=== PATIENT | male | born 1960 | race Caucasian/White ===

== ENCOUNTER 2021-01-13 15:27 | Inpatient (IN) | payer OTHER ==
[~2021-01-13] VITALS: Ht 172.7 cm; Wt 72.7 kg
[2021-01-13] VITALS (9 sets, daily range): BP systolic 97–110; BP diastolic 57–81
[~2021-01-13 15:27] MED LIST: ASPI81TA64 PO; ATOR40TA PO; CARV3.12 PO; CLOP75TA28 PO; ENLP2.5T PO; FURO20TA4 PO; SPIR25TA5 PO
[2021-01-13] MEDS ORDERED: LIDOCAINE 1% INJ 20 ML 20 ML VIAL ONE (15:38)
--- NOTE | 2021-01-13 15:50 | ED Upper Extremity ---
General Chief Complaint: Laceration Stated Complaint: LACERATION ON LEFT HAND Nursing Triage Note: Patient reports he was taking care of his horse, states the horse moved and he reached out to steady himself on a wooden border of a raised garden. States his hand slid across the wood and a sharp piece of wood cut the palm of his left hand. He reports his tetanus shot is up to date (last August). Nursing Sepsis Screen: No Definite Risk Source: patient Exam Limitations: no limitations History of Present Illness Date Seen by Provider: Jan 13, 2021 Time Seen by Provider: 15:49 Initial Comments 60-year-old man presents with a laceration to his left palm. See nurse's note above. Incidentally noted while taking vitals to have a rapid heart rate, patient asymptomatic. Denies chest pain or shortness of air. Denies palpitations or syncope. States he was seen last week and had a heart catheterization and a stent placed [facility] by Dr. Mena. Since then he has been doing fine his only medications being aspirin and Lipitor, but he is not sure of any others. Allergies and Home Medications Allergies Coded Allergies: No Known Drug Allergies (Unverified , 01/03/21) Home Medications Aspirin 81 Mg Tab.chew, 81 MG PO DAILY Prescribed by: SEAN JIMÉNEZ on 01/05/21917 Atorvastatin Calcium 40 Mg Tablet, 40 MG PO HS Prescribed by: SEAN JIMÉNEZ on 01/05/21917 Carvedilol 3.125 Mg Tablet, 3.125 MG PO BID Prescribed by: SEAN JIMÉNEZ on 01/05/21917 Clopidogrel Bisulfate 75 Mg Tablet, 75 MG PO DAILY Prescribed by: SEAN JIMÉNEZ on 01/05/21917 Enalapril Maleate 2.5 Mg Tablet, 2.5 MG PO BID Prescribed by: SEAN JIMÉNEZ on 01/05/21917 Furosemide 20 Mg Tablet, 20 MG PO DAILY Prescribed by: SEAN JIMÉNEZ on 01/05/21917 Spironolactone 25 Mg Tablet, 25 MG PO DAILY Prescribed by: SEAN JIMÉNEZ on 01/05/21917 Patient Home Medication List Home Medication List Reviewed: Yes Review of Systems Constitutional: No fever, No malaise, No weakness EENTM: no symptoms reported Respiratory: no symptoms reported; No cough, No short of breath Cardiovascular: No chest pain, No edema; Hx of Intervention; No palpitations, No syncope, No vascular heart diseas Gastrointestinal: No abdominal pain, No nausea, No vomiting Musculoskeletal: No back pain, No joint pain; other (cut to left hand/ palm, no signif pain) Skin: No change in color, No lesions, No lumps Psychiatric/Neurological: Denies Numbness, Denies Paresthesia, Denies Seizure, Denies Tingling, Denies Tremors, Denies Weakness Past Zulbplu-Enkrfy-Ctcxru Hx Past Med/Social Hx: Reviewed Nursing Past Med/Soc Hx Patient Social History Alcohol Use: Denies Use Smoking Status: Never a Smoker 2nd Hand Smoke Exposure: No Recent Infectious Disease Expo: No Recent Hopitalizations: No Immunizations Up To Date Tetanus Booster (TDap): Unknown Date of Influenza Vaccine: Aug 14, 2020 Seasonal Allergies Seasonal Allergies: No Past Medical History Surgeries: Yes Orthopedic Respiratory: No Cardiac: No Neurological: No Genitourinary: No Gastrointestinal: No Musculoskeletal: No Endocrine: No HEENT: No Cancer: No Psychosocial: No Integumentary: No Blood Disorders: No Family Medical History Heart Disease, Diabetes Physical Exam Vital Signs Vital Signs - First Documented 01/13/21 15:28 Temp 37.5 Pulse 121 Resp 16 B/P (MAP) 128/79 (95) Pulse Ox 97 O2 Delivery Room Air Capillary Refill : Less Than 3 Seconds Height, Weight, BMI Height: '" Weight: lbs. oz. kg; 24.00 BMI Method: General Appearance: WD/WN, no apparent distress Neck: non-tender, supple Cardiovascular: no edema, no JVD, tachycardia Respiratory: chest non-tender, lungs clear, normal breath sounds, no respiratory distress, no accessory muscle use Gastrointestinal: normal bowel sounds, non tender, soft Back: normal inspection, no CVA tenderness Hand: normal ROM, Left, soft tissue tenderness (2cm flap laceration palm of left hand) Neurologic/Tendon: normal sensation, normal motor functions, normal tendon functions Neurologic/Psychiatric: no motor/sensory deficits, alert, normal mood/affect, oriented x 3 Skin: normal color, warm/dry Procedures/Interventions Wound Location: Upper Extremities Wound Length (cm): 2.0 Wound's Depth, Shape: flap Wound Explored: clean Betadine Prep?: No (sure cleans) Volume Anesthetic (ccs): 2 Suture: Ethlion Suture Size: 4-0 Number of Sutures: 2 Sterile Dressing Applied?: Yes Progress/Results/Core Measures Results/Orders Lab Results Laboratory Tests Test 01/13/21 15:52 Range/Units White Blood Count 12.7 H 4.3-11.0 10^3/uL Red Blood Count 4.56 4.35-5.85 10^6/uL Hemoglobin 13.4 13.3-17.7 G/DL Hematocrit 41 40-54 % Mean Corpuscular Volume 89 80-99 FL Mean Corpuscular Hemoglobin 29 25-34 PG Mean Corpuscular Hemoglobin Concent 33 32-36 G/DL Red Cell Distribution Width 13.1 10.0-14.5 % Platelet Count 391 130-400 10^3/uL Mean Platelet Volume 9.8 7.4-10.4 FL Immature Granulocyte % (Auto) 1 % Neutrophils (%) (Auto) 77 H 42-75 % Lymphocytes (%) (Auto) 14 12-44 % Monocytes (%) (Auto) 7 0-12 % Eosinophils (%) (Auto) 1 0-10 % Basophils (%) (Auto) 0 0-10 % Neutrophils # (Auto) 9.7 H 1.8-7.8 X 10^3 Lymphocytes # (Auto) 1.8 1.0-4.0 X 10^3 Monocytes # (Auto) 0.8 0.0-1.0 X 10^3 Eosinophils # (Auto) 0.2 0.0-0.3 10^3/uL Basophils # (Auto) 0.1 0.0-0.1 10^3/uL Immature Granulocyte # (Auto) 0.1 0.0-0.1 10^3/uL Sodium Level 133 L 135-145 MMOL/L Potassium Level 4.5 3.6-5.0 MMOL/L Chloride Level 97 L 98-107 MMOL/L Carbon Dioxide Level 24 21-32 MMOL/L Anion Gap 12 5-14 MMOL/L Blood Urea Nitrogen 16 7-18 MG/DL Creatinine 0.76 0.60-1.30 MG/DL Estimat Glomerular Filtration Rate > 60 BUN/Creatinine Ratio 21 Glucose Level 168 H 70-105 MG/DL Calcium Level 9.3 8.5-10.1 MG/DL Corrected Calcium 9.5 8.5-10.1 MG/DL Magnesium Level 1.9 1.6-2.4 MG/DL Total Bilirubin 0.4 0.1-1.0 MG/DL Aspartate Amino Transf (AST/SGOT) 20 5-34 U/L Alanine Aminotransferase (ALT/SGPT) 20 0-55 U/L Alkaline Phosphatase 99 40-136 U/L Troponin I < 0.30 <0.30 NG/ML Total Protein 7.0 6.4-8.2 GM/DL Albumin 3.8 3.2-4.5 GM/DL My Orders Orders - HERI FREEMAN DO Lidocaine 1% Inj 20 Ml (Xylocaine 1% Inj (01/13/21 15:38) Cbc With Automated Diff (01/13/21 15:54) Comprehensive Metabolic Panel (01/13/21 15:54) Troponin I Fs (01/13/21 15:54) Metoprolol Tartrate Injection (Lopressor (01/13/21 16:00) Ekg Tracing (01/13/21 15:59) Ekg Tracing (01/13/21 16:00) Ns Iv 1000 Ml (Sodium Chloride 0.9%) (01/13/21 16:02) Ns Iv 1000 Ml (Sodium Chloride 0.9%) (01/13/21 16:15) Metoprolol Tartrate Injection (Lopressor (01/13/21 16:15) Ekg Tracing (01/13/21 16:25) Diltiazem Injection (Cardizem Injection) (01/13/21 16:45) Magnesium (01/13/21 16:35) Adenosine Injection (Adenocard Injection (01/13/21 16:45) Fentanyl Inj (Sublimaze Injection) (01/13/21 17:00) Midazolam Injection (Versed Injection) (01/13/21 17:00) Ns Iv 1000 Ml (Sodium Chloride 0.9%) (01/13/21 17:00) Diltiazem Injection (Cardizem Injection) (01/13/21 17:45) Diltiazem Drip Pre-Mix (Cardizem Drip Pr (01/13/21 17:45) Adenosine Injection (Adenocard Injection (01/13/21 17:45) Adenosine Injection (Adenocard Injection (01/13/21 17:45) Medications Given in ED Current Medications Medications Dose Ordered Sig/Carlyn Route Start Time Stop Time Status Last Admin Dose Admin Adenosine 6 mg ONCE ONCE IV 01/13/21 16:45 01/13/21 16:46 DC 01/13/21 17:09 6 MG Adenosine 6 mg ONCE ONCE IV 01/13/21 17:45 01/13/21 17:46 DC 01/13/21 17:12 6 MG Adenosine 12 mg ONCE ONCE IV 01/13/21 17:45 01/13/21 17:46 DC 01/13/21 17:15 12 MG Diltiazem HCl 10 mg ONCE ONCE IVP 01/13/21 17:45 01/13/21 17:46 DC 01/13/21 18:03 10 MG Lidocaine HCl 20 ml STK-MED ONCE .ROUTE 01/13/21 15:38 01/13/21 15:44 DC 01/13/21 18:04 20 ML Metoprolol Tartrate 5 mg ONCE ONCE IV 01/13/21 16:00 01/13/21 16:01 DC 01/13/21 15:59 5 MG Vital Signs/I&O 01/13/21 15:28 Temp 37.5 Pulse 121 Resp 16 B/P (MAP) 128/79 (95) Pulse Ox 97 O2 Delivery Room Air Blood Pressure Mean: 95 Progress Progress Note : Progress Note 1650- called Dr Mena, cheng patient asymptomatic presentation w irreg HR and Tachy.....no response to metoprolol 5mg x 2. Advised Adenosine and cardiovert if unstable. patient did not have a pause w Adenosine 6mg x2, and only small slowing w 12mg Adenosine revealing A. flutter w 2:1 - 3:[address] Mena afterward and he suggested cardioversion. I explained that patient was asymptomatic and stable and I didn't feel comfortable converting him in that situation and not knowing enough about him or how long he has been in this rhythm. He agreed to see pt in consultation after admission. Departure Communication (Admissions) Time/Spoke to Admitting Phy: 17:[address] Porter regarding pt HPI, PMHx and presentation today for a hand lac. Discussed tx given in ER and consultation w Dr Mena. He accepts for transfer to [facility] Impression Primary Impression: Atrial flutter with rapid ventricular response Additional Impressions: Ischemic cardiomyopathy Laceration of hand Qualified Codes: S61.412A - Laceration without foreign body of left hand, initial encounter Disposition: 30 STILL A PATIENT Condition: Stable Admissions Decision to Admit Reason: Admit from ER (General) Decision to Admit/Date: Jan 13, 2021 Time/Decision to Admit Time: 16:30 Departure-Patient Inst. Referrals: FRANCIA GONZALEZ (PCP/Family) Primary Care Physician HERI FREEMAN DO Jan 13, 2021 15:50
[2021-01-13 15:59] LABS: BASOPHILS # (AUTO) 0.1 10^3/uL (0.0-0.1); BASOPHILS % (AUTO) 0 % (0-10); EOSINOPHILS # (AUTO) 0.2 10^3/uL (0.0-0.3); EOSINOPHILS % (AUTO) 1 % (0-10); HEMATOCRIT 41 % (40-54); HEMOGLOBIN 13.4 G/DL (13.3-17.7); LYMPHOCYTES # (AUTO) 1.8 X 10^3 (1.0-4.0); LYMPHOCYTES % (AUTO) 14 % (12-44); MEAN CORPUSCULAR HEMOGLOBIN 29 PG (25-34); MEAN CORPUSCULAR HGB CONC 33 G/DL (32-36); MEAN CORPUSCULAR VOLUME 89 FL (80-99); MEAN PLATELET VOLUME 9.8 FL (7.4-10.4); MONOCYTES # (AUTO) 0.8 X 10^3 (0.0-1.0); MONOCYTES % (AUTO) 7 % (0-12); NEUTROPHILS # (AUTO) 9.7 X 10^3 (1.8-7.8); NEUTROPHILS % (AUTO) 77 % (42-75); PLATELET COUNT 391 10^3/uL (130-400); WHITE BLOOD COUNT 12.7 10^3/uL (4.3-11.0)
[2021-01-13] MEDS ORDERED: meTOprolol 5 MG/5 ML (LOPRESSOR) VIAL IV ONE ×2 (16:00→16:15)
[2021-01-13] MEDS ORDERED: NS IV 1000 ML 1,000 ML ONE (16:02)
[2021-01-13] MEDS ORDERED: NS IV 1000 ML 1,000 ML IV SCH ×2 (16:15→17:00)
[2021-01-13 16:18] LABS: ALANINE AMINOTRANSFERASE 20 U/L (0-55); ALBUMIN 3.8 GM/DL (3.2-4.5); ALKALINE PHOSPHATASE 99 U/L (40-136); BILIRUBIN,TOTAL 0.4 MG/DL (0.1-1.0); BUN/CREATININE RATIO 21; CALCIUM 9.3 MG/DL (8.5-10.1); CARBON DIOXIDE 24 MMOL/L (21-32); CHLORIDE 97 MMOL/L (98-107); CREATININE SERUM 0.76 MG/DL (0.60-1.30); GFR ESTIMATED > 60; GLUCOSE 168 MG/DL (70-105); POTASSIUM 4.5 MMOL/L (3.6-5.0); SODIUM 133 MMOL/L (135-145)
[2021-01-13] MEDS ORDERED: ADENOSINE 6 MG/2 ML (ADENOCARD) VIAL IV ONE ×3 (16:45→17:45)
[2021-01-13] MEDS ORDERED: fentaNYL INJ 100 MCG/2 ML AMP IVP ONE (17:00)
[2021-01-13] MEDS ORDERED: MIDAZOLAM 5 MG/5 ML (VERSED) VIAL IVP ONE (17:00)
[2021-01-13] MEDS ORDERED: dilTIAZem DRIP PRE-MIX 125 ML IV SCH ×2 (17:45→22:30)
[2021-01-13] MEDS ORDERED: MAGNESIUM 1 GM/100 ML IVPB 100 ML IV ONE (19:45)
[2021-01-13] MEDS: NS IV 1000 ML 1,000 ML IV SCH (23:18)
[2021-01-14] VITALS (20 sets, daily range): BP systolic 90–123; BP diastolic 61–85
[2021-01-14 05:10] LABS: HEMOGLOBIN 12.2 g/dL (13.3-17.7); MEAN PLATELET VOLUME 9.9 fL (9.0-12.2); WHITE BLOOD COUNT 10.9 10^3/uL (4.3-11.0)
[2021-01-14 05:25] LABS: BUN/CREATININE RATIO 16; CALCIUM 8.5 MG/DL (8.5-10.1); CARBON DIOXIDE 22 MMOL/L (21-32); CHLORIDE 103 MMOL/L (98-107); CREATININE SERUM 0.74 MG/DL (0.60-1.30); GFR ESTIMATED > 60; GLUCOSE 106 MG/DL (70-105); POTASSIUM 4.3 MMOL/L (3.6-5.0); SODIUM 136 MMOL/L (135-145)
[2021-01-14] MEDS: NS IV 1000 ML 1,000 ML IV SCH ×2 (05:54→12:00)
[2021-01-14] MEDS ORDERED: AMIODARONE INJECTION 150 MG in D5W 100 ML IVPB 100 ML IV ONE (11:30)
[2021-01-14] MEDS ORDERED: CLOPIDOGREL 75 MG (PLAVIX) TABLET ONE (11:32)
[2021-01-14] MEDS: APIXABAN 5 MG (ELIQUIS) TABLET PO SCH ×2 (11:42→21:46)
[2021-01-14] MEDS: meTOprolol TARTRATE 50 MG (LOPRESSOR) TAB PO SCH ×2 (11:42→21:46)
[2021-01-14] MEDS: CLOPIDOGREL 75 MG (PLAVIX) TABLET PO SCH (11:42)
[2021-01-14] MEDS: AMIODARONE INJECTION 450 MG in D5W IV SOLUTION (EXCEL) 250 ML IV SCH ×2 (11:43→21:19)
--- NOTE | 2021-01-14 12:05 | History & Physical-Hospitalist ---
History of Present Illness HPI/Chief Complaint Yimi Pena is a 60-year-old male with past medical history of hypertension, hyperlipidemia, coronary artery disease with recent stent placement, who presented to with a hand laceration. He was outside working with his horses when a was knocked over and caught his hand on some wood. The laceration was repaired in the emergency room. He was found to have new onset atrial flutter with rapid ventricular response. He denies any palpitations or chest pain. He denies any shortness of breath or cough. He denies any fevers or chills. Source: patient Exam Limitations: no limitations Date Seen 01/14/21 Time Seen by a Provider: 09:10 Attending Physician Magdaleno Garcia MD PCP Patience Sanchez Referring Physician Date of Admission Jan 13, 2021 at 19:22 Home Medications & Allergies Home Medications Reviewed patient Home Medication Reconciliation performed by pharmacy medication reconciliations cartography technician and/or nursing. Patients Allergies have been reviewed. Allergies Allergies Coded Allergies No Known Drug Allergies (Unverified01/03/21) Patient Social History Tobacco Use?: No Smoking Status: Former Smoker Smokeless Tobacco Frequency: Never a User Use of E-Cig and/or Vaping dev: No E-Cig and/or Vaping Freq: Never a User Substance use?: No Alcohol Use?: No Pt stated abuse/neglect: No Immunizations Up To Date Influenza Vaccine Up-to-Date: Yes; Up-to-Date Tetanus Booster (TDap): Unknown Hepatitis A: No Hepatitis B: No TB Skin Test: None Current Status Communicates: Verbally Primary Language: Macedonian Preferred Spoken Language: Macedonian Is interpretation needed?: No Sensory deficits: Vision impairment Past Medical History Hypertension Hyperlipidemia Coronary artery disease Family Medical History Family Hx: Noncontributory Review of Systems Constitutional: no symptoms reported, see HPI Physical Exam Physical Exam Vital Signs Vital Signs - First Documented 01/13/21 15:28 Temp 37.5 Pulse 121 Resp 16 B/P (MAP) 128/79 (95) Pulse Ox 97 O2 Delivery Room Air Capillary Refill : Less Than 3 Seconds Height, Weight, BMI Height: '" Weight: lbs. oz. kg; 24.37 BMI Method: General Appearance: No Apparent Distress, WD/WN HEENT: PERRL/EOMI, Pharynx Normal Neck: Normal Inspection, Supple Respiratory: Lungs Clear, Normal Breath Sounds, No Respiratory Distress Cardiovascular: No Murmur, Irregularly Irregular, Tachycardia Gastrointestinal: Normal Bowel Sounds, Non Tender, Soft Extremity: Normal Inspection, Non Tender, No Pedal Edema Neurologic/Psychiatric: Alert, Oriented x3, No Motor/Sensory Deficits, Normal Mood/Affect Skin: Normal Color, Warm/Dry Results Results/Procedures Labs Laboratory Tests 01/13/21 15:52 01/14/21 05:03 Patient resulted labs reviewed. Imaging: Reviewed Imaging Report Assessment/Plan Admission Diagnosis Atrial flutter with rapid ventricular response Admission Status: Inpatient Order (span 2 midnights) Reason for Inpatient Admission: New onset atrial flutter requiring IV medications Assessment and Plan New onset atrial flutter with rapid ventricular response Started on Cardizem Therapeutic Lovenox Cardiology consulted, appreciate assistance Transitioned to IV Amiodarone Transitioned to Eliquis Beginning Metoprolol Hand laceration Repaired in ER 01/13 CAD s/p recent coronary stenting Ischemic cardiomyopathy Continue ASA and Plavix LifeVest in room Monitoring on telemetry HTN HLD Continue home meds Diagnosis/Problems Diagnosis/Problems (1) Atrial flutter with rapid ventricular response Status: Acute (2) Laceration of hand Status: Acute Qualifiers: Encounter type: initial encounter Foreign body presence: without foreign body Laterality: left Qualified Codes: S61.412A - Laceration without foreign body of left hand, initial encounter (3) CAD (coronary artery disease) Status: Chronic (4) Ischemic cardiomyopathy Status: Chronic Supervisory-Addendum Brief Verification & Attestation Participated in pt care: other Personally performed: other Care discussed with: other Procedures: other n/a MAGDALENO GARCIA MD Jan 14, 2021 12:05
--- NOTE | 2021-01-14 13:23 | Consultation-Cardiology ---
HPI-Cardiology Cardiology Consultation: Date of Consultation 01/14/21 Date of Admission Attending Physician Krysta Rocha MD Admitting Physician Patience Sanchez Consulting Physician Bang MENA MD HPI: Time Seen by a Provider: 13:19 Chief Complaint: Left upper extremity laceration due to a farm accident This is a 60-year-old gentleman with history of hypertension, hyperlipidemia CAD with recent stent placement. He had a farm accident with Resultant left hand laceration. He presented to the ER. He was found to be in new onset atrial flutter with rapid ventricular response. Adenosine confirmed flutter waves. He denies any palpitations and chest pain. He was transferred to [facility] for further management.He denies active smoking. Pertinent family history is negative. Review of Systems-Cardiology Review of Systems Constitutional: As described under HPI; No As described under HPI, No no symptoms reported, No chills, No fever, No lightheadedness Eyes: No As described under HPI, No no symptoms reported, No blindness, No blurred vision, No contact lenses, No drainage, No decreased acuity, No foreign body sensation, No pain, No vision change Ears/Nose/Throat: No As described under HPI, No no symptoms reported, No chronic hearing loss, No ear discharge, No ear pain, No nasal drainage, No ulcerations Respiratory: No no symptoms reported; As described under HPI; No As described under HPI, No cough, No orthopnea, No shortness of breath, No SOB with excertion Cardiovascular: No no symptoms reported; As described under HPI; No As described under HPI, No chest pain, No edema, No irregular heart rate, No lightheadedness, No palpitations Gastrointestinal: No no symptoms reported, No As described under HPI, No abdomen distended, No abdominal pain, No blood streaked bowels, No constipation, No diarrhea, No nausea, No vomiting, No stool coloration changes Genitourinary: No As described under HPI, No burning, No dysuria, No discharge, No frequency, No flank pain, No hematuria, No urgency Musculoskeletal: As describe under HPI Skin: No rash, No skin related problems, No ulcerations Psychiatric/Neurological: No anxiety, No depression, No seizure, No focal weakness, No syncope Hematologic: No bleeding abnormalities NWA-[id number]-[id number] Hx Patient Social History Smoking Status: Former Smoker 2nd Hand Smoke Exposure: No Have you traveled recently?: No Alcohol Use?: No Pt feels they are or have been: No Immunizations Up To Date Tetanus Booster (TDap): Unknown Date of Influenza Vaccine: Aug 14, 2020 Past Medical History PMH As described under Assessment. Family Medical History Family Medical History: Father had CA and then triple CABG in his late 50s Allergies and Home Medications Allergies Coded Allergies: No Known Drug Allergies (Unverified , 01/03/21) Home Medications Aspirin 81 Mg Tab.chew, 81 MG PO DAILY Prescribed by: SEAN JIMÉNEZ on 01/05/21917 Atorvastatin Calcium 40 Mg Tablet, 40 MG PO HS Prescribed by: SEAN JIMÉNEZ on 01/05/21917 Carvedilol 3.125 Mg Tablet, 3.125 MG PO BID Prescribed by: SEAN JIMÉNEZ on 01/05/21917 Clopidogrel Bisulfate 75 Mg Tablet, 75 MG PO DAILY Prescribed by: SEAN JIMÉNEZ on 01/05/21917 Enalapril Maleate 2.5 Mg Tablet, 2.5 MG PO BID Prescribed by: SEAN JIMÉNEZ on 01/05/21917 Furosemide 20 Mg Tablet, 20 MG PO DAILY Prescribed by: SEAN JIMÉNEZ on 01/05/21917 Spironolactone 25 Mg Tablet, 25 MG PO DAILY Prescribed by: SEAN JIMÉNEZ on 01/05/21917 Patient Home Medication List Home Medication List Reviewed: Yes Physical Exam-Cardiology Physical Exam Vital Signs/I&O 01/14/21 01/14/21 01/14/21 01/14/21 02:00 03:00 04:00 04:00 Temp 37.1 Pulse 81 80 79 101 Resp 22 23 16 21 B/P (MAP) 98/68 (78) 99/67 (78) 101/71 (81) 100/67 (78) Pulse Ox 94 95 94 94 O2 Delivery Room Air Room Air Room Air Room Air 01/14/21 01/14/21 01/14/21 01/14/21 05:00 06:00 07:00 07:00 Pulse 114 137 90 78 Resp 18 20 28 B/P (MAP) 106/67 (80) 100/67 (78) 105/61 (76) Pulse Ox 98 94 96 O2 Delivery Room Air Room Air Room Air 01/14/21 01/14/21 01/14/21 01/14/21 07:58 08:00 08:00 09:00 Temp 37.8 Pulse 71 83 Resp 32 28 B/P (MAP) 109/72 (84) 109/80 (90) Pulse Ox 96 95 O2 Delivery Room Air Room Air Room Air 01/14/21 01/14/21 01/14/21 01/14/21 10:00 11:00 12:00 12:00 Temp 36.7 Pulse 90 81 100 Resp 12 30 22 B/P (MAP) 91/69 (76) 109/71 (84) 90/61 (71) Pulse Ox 95 94 94 O2 Delivery Room Air Room Air Room Air 01/14/21 00:00 Intake Total 2000 ml Output Total 200 ml Balance 1800 ml Capillary Refill : Less Than 3 Seconds Constitutional: appears stated age, AAO x 3; No apparent distress; well- developed, well-nourished HEENT: PERRL; No discharge; hearing is well preserved, oral hygience is good; No ulceration, No xanthelasmas are seen Neck: No carotid bruit; carotid pulses are 2 + bilaterally Respiratory: chest is bilaterally symmetric, lungs clear to auscultation Cardiovascular: irregularly irregular, tachycardia, S1 and S2 Gastrointestinal: soft, audible bowel sounds; No spleenomegaly Rectal: deferred Extremities: No clubbing, No cyanosis; no lower extremity edema bilateral; No significant edema Neurologic/Psychiatric: no motor/sensory deficits, alert, normal mood/affect, oriented x 3, power is 5/5 both on sides Skin: normal color; No rash, No ulcerations Data Review Labs Laboratory Tests 01/13/21 15:52: White Blood Count 12.7H, Red Blood Count 4.56, Hemoglobin 13.4, Hematocrit 41, Mean Corpuscular Volume 89, Mean Corpuscular Hemoglobin 29, Mean Corpuscular Hemoglobin Concent 33, Red Cell Distribution Width 13.1, Platelet Count 391, Mean Platelet Volume 9.8, Immature Granulocyte % (Auto) 1, Neutrophils (%) (Auto) 77H, Lymphocytes (%) (Auto) 14, Monocytes (%) (Auto) 7, Eosinophils (%) (Auto) 1, Basophils (%) (Auto) 0, Neutrophils # (Auto) 9.7H, Lymphocytes # (Auto) 1.8, Monocytes # (Auto) 0.8, Eosinophils # (Auto) 0.2, Basophils # (Auto) 0.1, Immature Granulocyte # (Auto) 0.1, Sodium Level 133L, Potassium Level 4.5, Chloride Level 97L, Carbon Dioxide Level 24, Anion Gap 12, Blood Urea Nitrogen 16, Creatinine 0.76, Estimat Glomerular Filtration Rate > 60, BUN/Creatinine Ratio 21, Glucose Level 168H, Calcium Level 9.3, Corrected Calcium 9.5, Magnesium Level 1.9, Total Bilirubin 0.4, Aspartate Amino Transf (AST/SGOT) 20, Alanine Aminotransferase (ALT/SGPT) 20, Alkaline Phosphatase 99, Troponin I < 0.30, Total Protein 7.0, Albumin 3.8 01/14/21 05:03: White Blood Count 10.9, Red Blood Count 4.20L, Hemoglobin 12.2L, Hematocrit 38L, Mean Corpuscular Volume 90, Mean Corpuscular Hemoglobin 29, Mean Corpuscular Hemoglobin Concent 32, Red Cell Distribution Width 13.1, Platelet Count 329, Mean Platelet Volume 9.9, Sodium Level 136, Potassium Level 4.3, Chloride Level 103, Carbon Dioxide Level 22, Anion Gap 11, Blood Urea Nitrogen 12, Creatinine 0.74, Estimat Glomerular Filtration Rate > 60, BUN/Creatinine Ratio 16, Glucose Level 106H, Calcium Level 8.5 ECG Impression ECG Initial ECG Rhythm: A Fib/Flutter Comment Typical atrial flutter. A/P-Cardiology Assessment/Admission Diagnosis Typical atrial flutter, Left upper extremity laceration, CAD/PCI Plan Typical atrial flutter, IV amiodarone, start metoprolol 50 mg twice a day. If does not convert to sinus rhythm on its own, we will consider transesophageal echocardiogram assisted cardioversion. Oral anticoagulation with Eliquis. Left upper extremity laceration, Already repaired by the ER. CAD/PCI, Will hold aspirin and continue Plavix and Eliquis for now. Continue rest of the secondary prevention measures. Thank you for your consultation. Please call me if you have any questions. Mellissa Mena MD, FACP, FACC, FSCAI, FHRS, CCDS Interventional Cardiology Cardiac Electrophysiology Vascular Medicine and Endovascular Interventions Bang MENA MD Jan 14, 2021 13:23
[2021-01-15] VITALS (14 sets, daily range): BP systolic 101–119; BP diastolic 64–92
--- NOTE | 2021-01-15 08:24 | Progress Note - Hospitalist ---
Subjective HPI/CC On Admission Date Seen by Provider: Jan 15, 2021 Time Seen by Provider: 08:18 Yimi Pena is a 60-year-old male with past medical history of hypertension, hyperlipidemia, coronary artery disease with recent stent placement, who presented to with a hand laceration. He was outside working with his horses when a was knocked over and caught his hand on some wood. The laceration was repaired in the emergency room. He was found to have new onset atrial flutter with rapid ventricular response. He denies any palpitations or chest pain. He denies any shortness of breath or cough. He denies any fevers or chills. Subjective/Events-last exam Pt reports feeling well. No complaints. Discussed risks associated with afib/flutter and stroke. He states he's familiar with strokes and their risks as that is what killed his in 2009. Objective Exam Vital Signs Vital Signs Date Time Temp Pulse Resp B/P (MAP) Pulse Ox O2 Delivery O2 Flow Rate FiO2 01/15/21 07:50 37.5 01/15/21 06:00 84 27 108/71 (83) 95 Room Air Capillary Refill : Less Than 3 Seconds General Appearance: No Apparent Distress, WD/WN Respiratory: Lungs Clear, No Respiratory Distress Cardiovascular: Regular Rate, Rhythm, No Murmur Gastrointestinal: Normal Bowel Sounds, Non Tender, Soft Neurologic/Psychiatric: Alert, Oriented x3 Results/Procedures Lab Patient resulted labs reviewed. Imaging: Reviewed Imaging Report Assessment/Plan Assessment and Plan Assess & Plan/Chief Complaint New onset atrial flutter with rapid ventricular response Converted to sinus yesterday afternoon, still on amio and off cardizem Cardiology consulted, appreciate assistance Continue Eliquis Continue Metoprolol Hand laceration due to farm accident Repaired in ER 4/3 CAD s/p recent coronary stenting Ischemic cardiomyopathy Continue ASA and Plavix Will discuss with cardiology regarding use of ASA/Plaviz and Eliquis at this time LifeVest in room, has been compliant Monitoring on telemetry HTN HLD Continue home meds DVT ppx: Eliquis as above ROSALIE TAVERAS MD Jan 15, 2021 08:24
[2021-01-15] MEDS: meTOprolol TARTRATE 50 MG (LOPRESSOR) TAB PO SCH (08:43)
[2021-01-15] MEDS: CLOPIDOGREL 75 MG (PLAVIX) TABLET PO SCH (08:43)
[2021-01-15] MEDS: APIXABAN 5 MG (ELIQUIS) TABLET PO SCH (08:43)
--- NOTE | 2021-01-15 10:06 | Cardiology Progress Note ---
Subjective Date Seen by Provider: Jan 15, 2021 Time Seen by Provider: 10:04 Subjective/Events-last exam Patient was seen at bedside, laying down comfortably, returned to sinus rhythm. Review of Systems General: No Chills, No Night Sweats, No Fatigue, No Malaise, No Appetite, No Other HEENT: No Head Aches, No Visual Changes, No Eye Pain, No Ear Pain, No Dysphasia, No Sinus Congestion, No Post Nasal Drip, No Sore Throat, No Other Pulmonary: No Dyspnea, No Cough, No Pleuritic Chest Pain, No Other Cardiovascular: No: Chest Pain, Palpitations, Orthopnea, Paroxysmal Noc. Dyspnea, Edema, Lt Headedness, Other Objective-Cardiology Exam Last Set of Vital Signs Vital Signs 01/15/21 01/15/21 01/15/21 06:00 07:50 09:00 Temp 37.5 Pulse 88 Resp 27 B/P (MAP) 117/77 (90) Pulse Ox 95 O2 Delivery Room Air Capillary Refill : Less Than 3 Seconds I&O Intake and Output 01/14/21 23:59 Intake Total 1383 ml Output Total 2810 ml Balance -1427 ml Intake Oral 1280 ml IV Total 103 ml Output Urine Total 2810 ml General: Alert, Oriented X3, Cooperative HEENT: Atraumatic, PERRLA Neck: Supple, No JVD, No Thyromegaly Lungs: Clear to Auscultation, Normal Air Movement Heart: Regular Rate, Normal S1, Normal S2, No Murmurs Abdomen: Normal Bowel Sounds, Soft, No Tenderness, No Hepatosplenomegaly, No Masses Extremities: No Clubbing, No Cyanosis, No Edema, Normal Pulses, No Tenderness/Swelling Skin: No Rashes, No Breakdown, No Significant Lesion Neuro: Normal Gait, Normal Speech, Strength at 5/5 X4 Ext, Normal Tone, S ensation Intact Psych/Mental Status: Mental Status NL, Mood NL A/P-Cardiology Admission Diagnosis Atrial flutter Coronary artery disease Congestive heart failure Hyperlipidemia Assessment/Plan Typical atrial flutter, converted on amiodarone drip, I will switch him to oral, continue on oral anticoagulation. Coronary artery disease status post acute myocardial infarction and stenting done in December [address] Garcia. Continue on aspirin and Plavix for now Congestive heart failure, chronic compensated left ventricular systolic dysfunction, ischemic cardiomyopathy, ejection fraction 20 to 25%, maintained on Coreg and enalapril which will be continued in addition to Lasix and spironol actone Increased risk of sudden , have a LifeVest for primary prevention Hypertension, controlled on current medication Hyperlipidemia, maintained on Lipitor Okay for discharge from cardiology standpoint CALLI QUINTERO MD Jan 15, 2021 10:06
[2021-01-15] MEDS ORDERED: AMIO200T6 PO (10:07)
[2021-01-15] MEDS ORDERED: APIX5TAB PO (10:07)
[2021-01-15] MEDS ORDERED: PANT40SU PO (10:08)
[2021-01-15] MEDS ORDERED: ASPIRIN 81 MG CHEW (CHILDREN'S ASA) PO SCH (10:42)
[2021-01-15] MEDS ORDERED: AMIODARONE 200 MG (CORDARONE) TAB PO SCH (10:42)
[2021-01-15] MEDS ORDERED: ENALAPRIL 2.5 MG (VASOTEC) TAB PO SCH (10:43)
[2021-01-15] MEDS ORDERED: CARVEDILOL 3.125 MG (COREG) TABLET PO SCH (10:43)
[2021-01-15] MEDS ORDERED: PANTOPRAZOLE 40 MG (PROTONIX) TAB PO SCH (10:44)
[2021-01-15] MEDS ORDERED: FUROSEMIDE 20 MG (LASIX) TAB PO SCH (10:44)
[2021-01-15] MEDS ORDERED: SPIRONOLACTONE 25 MG (ALDACTONE) TAB PO SCH (10:45)
--- NOTE | 2021-01-15 12:59 | Discharge Inst-Simple/Standard ---
Discharge Inst-Standard Discharge Medications New, Converted or Re-Newed RX: Transmitted to Pharmacy Patient Instructions/Follow Up Plan of Care/Instructions/FU: Please continue to take your medications as written. Please follow up with your primary care doctor to follow up this hospital stay. Please follow up with cardiology as scheduled. Please continue to wear your life vest. Activity as Tolerated: Yes Discharge Diet: Cardiac Diet Return to The Hospital For: Chest pain, shortness of breath, confusion, cough, Life vest discharge, if you feel you are getting worse. ROSALIE TAVERAS MD Jan 15, 2021 12:58
== END 2021-01-15 14:50 | disposition home or self-care (01) | DRG 309 ==
LOC: EDUNIT# 15:27 → ER FS 15:29 → ICU 19:22
PROVIDERS: ADMIT Internal Medicine; ATTEND Internal Medicine
PROC: 0HQGXZZ Repair Left Hand Skin, External Approach (ICD-10-PCS; principal; 2021-01-13)
DX: I48.92 Unspecified atrial flutter (principal); I50.22 Chronic systolic (congestive) heart failure; I25.5 Ischemic cardiomyopathy; S61.412A Laceration without foreign body of left hand, initial encounter; E78.5 Hyperlipidemia, unspecified; I11.0 Hypertensive heart disease with heart failure; I25.10 Atherosclerotic heart disease of native coronary artery without angina pectoris; Z79.82 Long term (current) use of aspirin; Z95.5 Presence of coronary angioplasty implant and graft; Z87.891 Personal history of nicotine dependence
CPT/HCPCS: 12001; 36415; 80048; 80053; 82962; 83735; 84484; 85025; 85027; 87081; 93005

== ENCOUNTER 2021-02-02 21:20 | Emergency (ER) | payer OTHER ==
[~2021-02-02 21:20] MED LIST changes: +AMIO200T6 PO; +APIX5TAB PO; +PANT40SU PO
[2021-02-02 21:43] LABS: WHITE BLOOD COUNT 15.3 10^3/uL (4.3-11.0)
[2021-02-02 21:44] LABS: BASOPHILS % (AUTO) 0 % (0-10); EOSINOPHILS # (AUTO) 0.2 10^3/uL (0.0-0.3); EOSINOPHILS % (AUTO) 2 % (0-10); HEMATOCRIT 37 % (40-54); HEMOGLOBIN 12.8 G/DL (13.3-17.7); LYMPHOCYTES # (AUTO) 1.8 X 10^3 (1.0-4.0); LYMPHOCYTES % (AUTO) 12 % (12-44); MEAN CORPUSCULAR HEMOGLOBIN 29 PG (25-34); MEAN CORPUSCULAR HGB CONC 35 G/DL (32-36); MEAN CORPUSCULAR VOLUME 84 FL (80-99); MEAN PLATELET VOLUME 9.5 FL (7.4-10.4); MONOCYTES # (AUTO) 1.1 X 10^3 (0.0-1.0); MONOCYTES % (AUTO) 7 % (0-12); NEUTROPHILS % (AUTO) 79 % (42-75); PLATELET COUNT 406 10^3/uL (130-400)
--- NOTE | 2021-02-02 21:47 | ED General ---
General Chief Complaint: General Problems/Pain Stated Complaint: SHAKING,POSS OD Source of Information: Patient Exam Limitations: No Limitations History of Present Illness Date Seen by Provider: Feb 02, 2021 Time Seen by Provider: 21:30 Initial Comments 60-year-old male with past medical history significant for coronary artery disease, recent NC and recent diagnosed with A. fib. Presents with feeling "shaky" for the past several hours. Primarily just in his hands. Denies chest pain, palpitations, rapid heart rate. Denies shortness of air, cough, fever or chills. Denies abdominal pain, nausea or vomiting. Denies back, flank pain or shoulder pain. Allergies and Home Medications Allergies Coded Allergies: No Known Drug Allergies (Unverified , 01/03/21) Home Medications Amiodarone HCl 200 Mg Tablet, 200 MG PO UD Take 2 tablet twice a day for 2 weeks then Take 1 tablet twice a day Prescribed by: CALLI QUINTERO on 01/15/211006 Apixaban 5 Mg Tablet, 5 MG PO BID Prescribed by: CALLI QUINTERO on 01/15/211006 Aspirin 81 Mg Tab.chew, 81 MG PO DAILY Prescribed by: SEAN JIMÉNEZ on 01/05/21917 Atorvastatin Calcium 40 Mg Tablet, 40 MG PO HS Prescribed by: SEAN JIMÉNEZ on 01/05/21917 Carvedilol 3.125 Mg Tablet, 3.125 MG PO BID Prescribed by: SEAN JIMÉNEZ on 01/05/21917 Clopidogrel Bisulfate 75 Mg Tablet, 75 MG PO DAILY Prescribed by: SEAN JIMÉNEZ on 01/05/21917 Enalapril Maleate 2.5 Mg Tablet, 2.5 MG PO BID Prescribed by: SEAN JIMÉNEZ on 01/05/21917 Furosemide 20 Mg Tablet, 20 MG PO DAILY Prescribed by: SEAN JIMÉNEZ on 01/05/21917 Pantoprazole Sodium 40 Mg Granpkt.dr, 40 MG PO DAILY Prescribed by: CALLI QUINTERO on 01/15/21 1008 Spironolactone 25 Mg Tablet, 25 MG PO DAILY Prescribed by: SEAN JIMÉNEZ on 01/05/21917 Patient Home Medication List Home Medication List Reviewed: Yes Review of Systems Review of Systems Constitutional: No fever, No malaise, No weakness; other (feeling shakey) EENTM: no symptoms reported Respiratory: No cough, No short of breath Cardiovascular: No chest pain, No edema, No palpitations, No syncope Gastrointestinal: No abdominal pain, No nausea, No vomiting Musculoskeletal: No back pain, No joint pain Skin: No change in color, No rash Past Iyzpnqy-Noprcs-Hpxcuo Hx Past Med/Social Hx: Reviewed Nursing Past Med/Soc Hx Patient Social History Alcohol Use: Denies Use 2nd Hand Smoke Exposure: No Recent Hopitalizations: No Immunizations Up To Date Tetanus Booster (TDap): Unknown Date of Influenza Vaccine: Aug 14, 2020 Seasonal Allergies Seasonal Allergies: No Past Medical History Surgeries: Yes Coronary Stent, Orthopedic Respiratory: No Cardiac: No Neurological: No Genitourinary: No Gastrointestinal: No Musculoskeletal: No Endocrine: No HEENT: No Cancer: No Psychosocial: No Integumentary: No Blood Disorders: No Family Medical History Heart Disease, Diabetes Noncontributory Physical Exam Vital Signs Vital Signs - First Documented 02/02/21 21:23 Temp 37.2 Pulse 85 Resp 16 B/P (MAP) 133/73 (93) Pulse Ox 99 O2 Delivery Room Air Capillary Refill : Height, Weight, BMI Height: '" Weight: lbs. oz. kg; 24.37 BMI Method: General Appearance: No Apparent Distress, WD/WN; No Anxious HEENT: PERRL/EOMI, Normal ENT Inspection Neck: Non Tender, Supple Respiratory: Chest Non Tender, Lungs Clear, Normal Breath Sounds, No Accessory Muscle Use, No Respiratory Distress Cardiovascular: Regular Rate, Rhythm, No Edema, No Gallop, No JVD, No Murmur, Normal Peripheral Pulses Gastrointestinal: Non Tender, Soft Back: Normal Inspection, No CVA Tenderness Extremity: Normal Capillary Refill, Non Tender, No Calf Tenderness Neurologic/Psychiatric: Alert, Oriented x3, No Motor/Sensory Deficits, Normal Mood/Affect Skin: Normal Color, Warm/Dry Procedures/Interventions Suture Size: 4-0 Progress/Results/Core Measures Suspected Sepsis SIRS Temperature: Pulse: Respiratory Rate: Laboratory Tests 02/02/21 21:31: White Blood Count 15.3H Blood Pressure / Mean: Laboratory Tests 02/02/21 21:31: Creatinine 0.76, Platelet Count 406H, Total Bilirubin 0.6 Results/Orders Lab Results Laboratory Tests Test 02/02/21 21:31 02/02/21 23:10 Range/Units White Blood Count 15.3 H 4.3-11.0 10^3/uL Red Blood Count 4.40 4.35-5.85 10^6/uL Hemoglobin 12.8 L 13.3-17.7 G/DL Hematocrit 37 L 40-54 % Mean Corpuscular Volume 84 80-99 FL Mean Corpuscular Hemoglobin 29 25-34 PG Mean Corpuscular Hemoglobin Concent 35 32-36 G/DL Red Cell Distribution Width 13.2 10.0-14.5 % Platelet Count 406 H 130-400 10^3/uL Mean Platelet Volume 9.5 7.4-10.4 FL Immature Granulocyte % (Auto) 1 % Neutrophils (%) (Auto) 79 H 42-75 % Lymphocytes (%) (Auto) 12 12-44 % Monocytes (%) (Auto) 7 0-12 % Eosinophils (%) (Auto) 2 0-10 % Basophils (%) (Auto) 0 0-10 % Neutrophils # (Auto) 12.0 H 1.8-7.8 X 10^3 Lymphocytes # (Auto) 1.8 1.0-4.0 X 10^3 Monocytes # (Auto) 1.1 H 0.0-1.0 X 10^3 Eosinophils # (Auto) 0.2 0.0-0.3 10^3/uL Basophils # (Auto) 0.0 0.0-0.1 10^3/uL Immature Granulocyte # (Auto) 0.2 H 0.0-0.1 10^3/uL Neutrophils % (Manual) 85 % Lymphocytes % (Manual) 11 % Monocytes % (Manual) 4 % Sodium Level 118 *L 135-145 MMOL/L Potassium Level 4.5 3.6-5.0 MMOL/L Chloride Level 90 L 98-107 MMOL/L Carbon Dioxide Level 20 L 21-32 MMOL/L Anion Gap 8 5-14 MMOL/L Blood Urea Nitrogen 17 7-18 MG/DL Creatinine 0.76 0.60-1.30 MG/DL Estimat Glomerular Filtration Rate > 60 BUN/Creatinine Ratio 22 Glucose Level 202 H 70-105 MG/DL Calcium Level 8.7 8.5-10.1 MG/DL Corrected Calcium 9.3 8.5-10.1 MG/DL Total Bilirubin 0.6 0.1-1.0 MG/DL Aspartate Amino Transf (AST/SGOT) 19 5-34 U/L Alanine Aminotransferase (ALT/SGPT) 16 0-55 U/L Alkaline Phosphatase 106 40-136 U/L Troponin I < 0.30 <0.30 NG/ML Total Protein 6.9 6.4-8.2 GM/DL Albumin 3.3 3.2-4.5 GM/DL Urine Color YELLOW Urine Clarity CLEAR Urine pH 6.5 5-9 Urine Specific [place] <=1.005 1.016-1.022 Urine Protein NEGATIVE NEGATIVE Urine Glucose (UA) NEGATIVE NEGATIVE Urine Ketones NEGATIVE NEGATIVE Urine Nitrite NEGATIVE NEGATIVE Urine Bilirubin NEGATIVE NEGATIVE Urine Urobilinogen 1.0 < = 1.0 MG/DL Urine Leukocyte Esterase NEGATIVE NEGATIVE Urine RBC (Auto) NEGATIVE NEGATIVE Urine RBC NONE /HPF Urine WBC NONE /HPF Urine Squamous Epithelial Cells NONE /HPF Urine Crystals NONE /LPF Urine Bacteria NEGATIVE /HPF Urine Casts NONE /LPF Urine Mucus NEGATIVE /LPF Urine Culture Indicated NO My Orders Orders - ROVENSTINE,HERI L DO Ed Iv/Invasive Line Start (02/02/21 21:40) Cbc With Automated Diff (02/02/21 21:40) Comprehensive Metabolic Panel (02/02/21 21:40) Troponin I Fs (02/02/21 21:40) Ekg Tracing (02/02/21 21:40) Manual Differential (02/02/21 21:31) Sodium Chloride 3% (Hypertonic Sodium Ch (02/02/21 22:15) Ua Culture If Indicated (02/02/21 23:12) Basic Metabolic Panel (02/03/21 00:30) Vital Signs/I&O 02/02/21 21:23 Temp 37.2 Pulse 85 Resp 16 B/P (MAP) 133/73 (93) Pulse Ox 99 O2 Delivery Room Air Capillary Refill : ECG Initial ECG Impression Date: Feb 02, 2021 Initial ECG Impression Time: 21:30 Initial ECG Rate: 80 Initial ECG Rhythm: Normal Sinus Initial ECG Intervals: Normal Initial ECG Impression: Normal Departure Impression Primary Impression: Acute hyponatremia Disposition: 01 HOME, SELF-CARE Condition: Improved Departure-Patient Inst. Decision time for Depature: 22:56 Referrals: FRANCIA GONZALEZ (PCP/Family) Primary Care Physician Patient Instructions: Hyponatremia (DC) Add. Discharge Instructions: Call your Labor Relations Supervisor on Friday to schedule a follow up appointment next week regarding your low sodium. Continue your current medications daily as instructed. At this point, you should add a little salt to your food to flavor as your salt level is low. You should avoid drinking too much water, right now you should limit yourself to four - 8 ounce bottles of water daily. If you have a primary care doctor, see them next week to discuss as well. You will need to have your sodium level rechecked in 5 to 7 days. If you are feeling worse, return promptly to the nearest ER. All discharge instructions reviewed with patient and/or family. Voiced understanding. HERI FREEMAN DO Feb 02, 2021 21:47
[2021-02-02 21:59] LABS: ALANINE AMINOTRANSFERASE 16 U/L (0-55); ALBUMIN 3.3 GM/DL (3.2-4.5); ALKALINE PHOSPHATASE 106 U/L (40-136); BILIRUBIN,TOTAL 0.6 MG/DL (0.1-1.0); BUN/CREATININE RATIO 22; CALCIUM 8.7 MG/DL (8.5-10.1); CARBON DIOXIDE 20 MMOL/L (21-32); CHLORIDE 90 MMOL/L (98-107); CREATININE SERUM 0.76 MG/DL (0.60-1.30); GFR ESTIMATED > 60; GLUCOSE 202 MG/DL (70-105); POTASSIUM 4.5 MMOL/L (3.6-5.0); SODIUM 118 MMOL/L (135-145); TOTAL PROTEIN 6.9 GM/DL (6.4-8.2)
[2021-02-02 22:03] LABS: LYMPHOCYTES % (MANUAL) 11 %; MONOCYTES % (MANUAL) 4 %; NEUTROPHILS % (MANUAL) 85 %
[2021-02-02] MEDS ORDERED: SODIUM CHLORIDE 3% 500 ML IV SCH (22:15)
[2021-02-02 23:18] LABS: BACTERIA,URINE NEGATIVE /HPF; BILIRUBIN,URINE NEGATIVE (NEGATIVE); CLARITY,URINE CLEAR; COLOR,URINE YELLOW; GLUCOSE, URINE (UA) NEGATIVE (NEGATIVE); KETONES,URINE NEGATIVE (NEGATIVE); LEUKOCYTE ESTERASE ,URINE NEGATIVE (NEGATIVE); NITRITE,URINE NEGATIVE (NEGATIVE); PH,URINE 6.5 (5-9); PROTEIN,URINE NEGATIVE (NEGATIVE)
[2021-02-03 00:48] LABS: BUN/CREATININE RATIO 24; CALCIUM 8.2 MG/DL (8.5-10.1); CARBON DIOXIDE 22 MMOL/L (21-32); CHLORIDE 95 MMOL/L (98-107); CREATININE SERUM 0.67 MG/DL (0.60-1.30); GFR ESTIMATED > 60; GLUCOSE 149 MG/DL (70-105); POTASSIUM 4.2 MMOL/L (3.6-5.0); SODIUM 125 MMOL/L (135-145)
[2021-02-03 00:49] VITALS: BP 97/59
== END 2021-02-03 00:55 | disposition home or self-care (01) ==
LOC: EDUNIT# 21:20 → ER FS 21:21
DX: E87.1 Hypo-osmolality and hyponatremia (principal); I48.91 Unspecified atrial fibrillation; Z95.5 Presence of coronary angioplasty implant and graft; Z79.01 Long term (current) use of anticoagulants; Z79.82 Long term (current) use of aspirin
CPT/HCPCS: 36415; 80048; 80053; 81000; 84484; 85007; 85027; 93005

== ENCOUNTER → 2021-02-12 | Outpatient (CLI) | payer OTHER | LOC: CARD 09:30 | PROVIDERS: ATTEND Internal Medicine Cardiovascular Disease | DX: I51.7 Cardiomegaly (principal); I25.5 Ischemic cardiomyopathy; I35.8 Other nonrheumatic aortic valve disorders | CPT/HCPCS: 93306 ==

== ENCOUNTER → 2021-03-28 | Outpatient (CLI) | payer OTHER | LOC: CARD 12:34 | PROVIDERS: ATTEND Nurse Practitioner Family | DX: I51.7 Cardiomegaly (principal); I25.5 Ischemic cardiomyopathy; I50.9 Heart failure, unspecified | CPT/HCPCS: 93306 ==

== ENCOUNTER → 2021-05-08 | Outpatient (CLI) | payer OTHER ==
[~2021-05-08] MED LIST changes: +CATHETER FLUSH 10 ML SYR IV PRN; +HEParin (CENTRAL IV FLUSH) 500 UNIT/5 ML SYR IV ONE; +HEParin (CENTRAL IV FLUSH) 500 UNIT/5 ML SYR ONE
== END ==
LOC: CARD 14:00
PROVIDERS: ATTEND Nurse Practitioner Family
DX: I25.5 Ischemic cardiomyopathy (principal)
CPT/HCPCS: 78472

== ENCOUNTER 2021-06-05 10:00 | Day surgery (SDC) | payer OTHER ==
[~2021-06-05] VITALS: Ht 172.7 cm; Wt 70.3 kg
[2021-06-05] VITALS (10 sets, daily range): BP systolic 81–129; BP diastolic 54–84
[2021-06-05 09:16] LABS: HEMATOCRIT 43 % (40-54); HEMOGLOBIN 13.6 g/dL (13.3-17.7); MEAN CORPUSCULAR HEMOGLOBIN 29 pg (25-34); MEAN CORPUSCULAR HGB CONC 32 g/dL (32-36); MEAN CORPUSCULAR VOLUME 93 fL (80-99); MEAN PLATELET VOLUME 10.1 fL (9.0-12.2); PLATELET COUNT 244 10^3/uL (130-400); WHITE BLOOD COUNT 8.3 10^3/uL (4.3-11.0)
[2021-06-05 09:33] LABS: CREATININE SERUM 1.07 MG/DL (0.60-1.30); POTASSIUM 4.4 MMOL/L (3.6-5.0)
[2021-06-05 09:34] LABS: ALBUMIN 4.1 GM/DL (3.2-4.5); BILIRUBIN,TOTAL 0.6 MG/DL (0.1-1.0); CALCIUM 9.4 MG/DL (8.5-10.1); TOTAL PROTEIN 7.7 GM/DL (6.4-8.2)
[~2021-06-05 10:00] MED LIST changes: +ACET-2267 PO; +ATOR80TA76 PO; +CARV6.252 PO; -CATHETER FLUSH 10 ML SYR IV PRN; +HEParin (CATH LAB) 1,000 ML IV ONE; -HEParin (CENTRAL IV FLUSH) 500 UNIT/5 ML SYR IV ONE; -HEParin (CENTRAL IV FLUSH) 500 UNIT/5 ML SYR ONE; +LIDOCAINE 1% INJ 20 ML 20 ML VIAL ONE; +NS IV 1000 ML 1,000 ML IV SCH; +NS IV 1000 ML 2,000 ML ONE; +PANT40TA52 PO; +ceFAZolin INJECTION 1,000 MG ONE
--- NOTE | 2021-06-05 11:55 | Cardiac Procedure Note-CS/ASA ---
Pre-Procedure Note Pre-Op Procedure Note H&P Reviewed The H&P was reviewed, patient examined and no changes noted. Date H&P Reviewed: Jun 05, 2021 Time H&P Reviewed: 10:15 Conscious Sedation Pre-Proced Time 10:15 ASA Score 3 For ASA 3 and 4: Consider anesthesia and medical clearance. Also, for patients with a history of failed moderate sedation consider anesthesia. Airway Lungs Heart ASA score ASA 1: a normal healthy patient ASA 2: a patient with a mild systemic disease (mid diabetes, controlled hypertension, obesity ASA 3: a patient with a severe systemic disease that limits activity (angina, COPD, prior Myocardial infarction) ASA 4: a patient with an incapacitating disease that is a constant threat to life (CHF, renal failure) ASA 5: a moribund patient not expected to survive 24 hrs. (ruptured aneurysm) ASA 6: a declared brain- patient whose organs are being harvested. For emergent operations, add the letter E after the classification Mallampati Classification Grade 3 Sedation Plan Analgesia, Amnesia, Plan communicated to team members, Discussed options with patient/fam, Discussed risks with patient/fam The patient is an appropriate candidate to undergo the planned procedure, sedation, and anesthesia. The patient immediately re-assessed prior to indication. TRINITY HENSLEY MD FACP FAC CCDS Jun 05, 2021 11:55
[2021-06-05] MEDS ORDERED: PATIENT MAY USE OWN MEDS, ALL PO SCH (12:30)
[2021-06-05] MEDS ORDERED: ACETAMINOPHEN 500 MG TAB (TYLENOL) PO PRN (12:30)
[2021-06-05] MEDS ORDERED: NS IV 1000 ML 1,000 ML IV SCH (12:30)
--- NOTE | 2021-06-05 13:11 | Diagnostic Imaging Report ---
INDICATION: Post cardiac device placement. COMPARISON: 01/03/2021. TECHNIQUE: Two radiographs of the chest dated 06/05/2021. FINDINGS: Interval placement of a pacer/AICD with the battery pack overlying the left upper chest. No significant pneumothorax. The cardiac silhouette is enlarged. No significant pulmonary vascular congestion. Low lung volumes. Potential left basilar opacities are present. No right-sided pleural effusion. No pneumothorax. Chronic right-sided rib fractures without acute osseous abnormality. IMPRESSION: Placement of an AICD/pacer with the battery pack overlying the left chest without pneumothorax. Cardiomegaly without pulmonary vascular congestion. Left basilar opacities, which may simply relate to positioning and overlying soft tissues, though pleural fluid or pulmonary infiltrate is an additional consideration. Recommend follow-up two-view radiographs of the chest for further evaluation. Dictated by: Dictated on workstation # [id number]
[2021-06-05] MEDS ORDERED: ceFAZolin INJECTION 1,000 MG in WATER (STERILE) FOR INJECTION 10 ML IV SCH (14:00)
--- NOTE | 2021-06-05 17:50 | OPERATIVE REPORT ---
DATE OF SERVICE: 06/05/2021 PREOPERATIVE DIAGNOSIS: Ischemic cardiomyopathy with ejection fraction 30%. POSTOPERATIVE DIAGNOSIS: Ischemic cardiomyopathy with ejection fraction 30%. PROCEDURE: Single chamber ICD implantation. INDICATIONS: The patient is a 60-year-old gentleman, who is known to have ischemic cardiomyopathy. Last myocardial infarction was in 12/2020. Despite optimization of medical regimen, ejection fraction remains low. MUGA scan of 05/08/2021 showed an ejection fraction of 30%. He has been on a LifeVest for several months. Permanent pacemaker defibrillator implantation was advised. Informed consent was obtained. DESCRIPTION OF PROCEDURE: [facility] The left prepectoral area was prepared and draped in the usual sterile fashion. Lidocaine 1% was used for local anesthesia. The patient received approximately 40 mL of intravenous contrast in the left forearm vein to delineate the subclavian and axillary veins. This helped in cannulating the subclavian vein. Modified Seldinger technique was used to advance a guidewire into the left subclavian vein and the tip was placed in the right atrium. Sharp and blunt dissection was used to make a pacemaker pocket and the pocket was packed with saline gauze. The guidewire was used to advance a sheath and the guidewire was removed. The sheath was used to advance the lead and the lead positioning was carried out under fluoroscopy. This is an active fixation lead, which was placed close to the right ventricular apex and actively fixed. R waves were sensed between 8 and 9 millivolts. Capture threshold was 0.3 volts at 0.4 milliseconds. There was no diaphragmatic stimulation at 10 volts. Right ventricular pacing impedance was 456 ohms. The lead is Medtronic model [id number] with serial #[id number]. The device is Medtronic model [id number] and the serial #[id number]. The lead was sutured to the prepectoral fascia using 0 Ethibond. The lead was attached to the device. The gauze was removed from the pacemaker pocket and the pocket was thoroughly irrigated with saline. Good hemostasis was assured. The device and the lead were placed back into the pocket and the pocket was closed in 2 layers using 3.0 Vicryl. He tolerated the procedure well. The device is set to deliver shock for ventricular fibrillation at R-R interval of 300 milliseconds. A ventricular tachycardia monitor zone is set at 450 milliseconds. Job ID: [id number] DocumentID: [id number] Dictated Date: 06/05/2021 12:07:18 Duplicating Machine Servicer Date: 06/05/2021 17:49:30 Dictated By: TRINITY HENSLEY MD, MA, FACP, FACC,
[2021-06-05] MEDS: ceFAZolin INJECTION 1,000 MG in WATER (STERILE) FOR INJECTION 10 ML IV SCH (18:11)
[2021-06-05] MEDS: AMIODARONE 200 MG (CORDARONE) TAB PO SCH (20:26)
[2021-06-06] VITALS: BP 92/54
[2021-06-06] MEDS: ceFAZolin INJECTION 1,000 MG in WATER (STERILE) FOR INJECTION 10 ML IV SCH ×2 (02:36→09:48)
[2021-06-06 03:38] LABS: HEMATOCRIT 39 % (40-54); HEMOGLOBIN 12.2 g/dL (13.3-17.7); MEAN CORPUSCULAR HEMOGLOBIN 30 pg (25-34); MEAN CORPUSCULAR HGB CONC 31 g/dL (32-36); MEAN CORPUSCULAR VOLUME 94 fL (80-99); MEAN PLATELET VOLUME 10.4 fL (9.0-12.2); PLATELET COUNT 195 10^3/uL (130-400); WHITE BLOOD COUNT 7.6 10^3/uL (4.3-11.0)
[2021-06-06 03:50] LABS: ALBUMIN 3.5 GM/DL (3.2-4.5); POTASSIUM 4.2 MMOL/L (3.6-5.0)
[2021-06-06 03:52] LABS: CALCIUM 8.5 MG/DL (8.5-10.1)
[2021-06-06 03:53] LABS: TOTAL PROTEIN 6.3 GM/DL (6.4-8.2)
[2021-06-06 03:55] LABS: BILIRUBIN,TOTAL 0.4 MG/DL (0.1-1.0)
[2021-06-06 03:56] LABS: CREATININE SERUM 0.94 MG/DL (0.60-1.30)
[2021-06-06 04:00] VITALS: BP 91/60
--- NOTE | 2021-06-06 08:02 | Progress Note - Cardiology ---
Cardiology SOAP Progress Note Subjective: Lying in bed No c/o CP, SOB or palpitations No c/o site discomfort Objective: I&O/Vital Signs 06/05/21 06/06/21 06/06/21 06/06/21 21:00 00:00 01:00 04:00 Temp 36.6 36.0 Pulse 55 50 53 Resp 12 17 B/P (MAP) 92/54 (67) 91/60 (70) Pulse Ox 94 95 95 O2 Delivery Room Air Room Air Room Air 06/06/21 00:00 Intake Total 860 ml Output Total 1000 ml Balance -140 ml Side: left Device Insertion Site: without hematoma, no signs of inflammation Swelling: without swelling Drainage: No Bruising: mild bruising Constitutional: AAO x 3 Respiratory: No accessory muscle use, No respiratory distress; chest expansion is symmetric, chest is bilaterally symmetric, lungs clear to auscultation Cardiovascular: regular rate-rhythm; No JVD; S1 and S2 Gastrointestional: No tender; soft, audible bowel sounds Extremities: no lower extremity edema bilateral Neurologic/Psychiatric: grossly intact (moves all extremities) Skin: No rash on exposed areas, No ulcerations on exposed areas Results/Procedures: Labs Laboratory Tests 06/05/21 09:08: White Blood Count 8.3, Red Blood Count 4.64, Hemoglobin 13.6, Hematocrit 43, Mean Corpuscular Volume 93, Mean Corpuscular Hemoglobin 29, Mean Corpuscular Hemoglobin Concent 32, Red Cell Distribution Width 14.2, Platelet Count 244, Mean Platelet Volume 10.1, Prothrombin Time 14.0, INR Comment 1.0, Activated Partial Thromboplast Time 31, Sodium Level 138, Potassium Level 4.4, Chloride Level 105, Carbon Dioxide Level 24, Anion Gap 9, Blood Urea Nitrogen 20H, Creatinine 1.07, Estimat Glomerular Filtration Rate 70, BUN/Creatinine Ratio 19, Glucose Level 97, Calcium Level 9.4, Corrected Calcium 9.3, Total Bilirubin 0.6, Aspartate Amino Transf (AST/SGOT) 23, Alanine Aminotransferase (ALT/SGPT) 19, Alkaline Phosphatase 102, Total Protein 7.7, Albumin 4.1, Triglycerides Level 93, Cholesterol Level 117, LDL Cholesterol Direct 65, VLDL Cholesterol 19, HDL Cholesterol 39L 06/06/21 03:10: White Blood Count 7.6, Red Blood Count 4.13L, Hemoglobin 12.2L, Hematocrit 39L, Mean Corpuscular Volume 94, Mean Corpuscular Hemoglobin 30, Mean Corpuscular Hemoglobin Concent 31L, Red Cell Distribution Width 14.1, Platelet Count 195, Mean Platelet Volume 10.4, Sodium Level 135, Potassium Level 4.2, Chloride Level 105, Carbon Dioxide Level 23, Anion Gap 7, Blood Urea Nitrogen 14, Creatinine 0.94, Estimat Glomerular Filtration Rate 82, BUN/Creatinine Ratio 15, Glucose Level 99, Calcium Level 8.5, Corrected Calcium 8.9, Total Bilirubin 0.4, Aspartate Amino Transf (AST/SGOT) 17, Alanine Aminotransferase (ALT/SGPT) 15, Alkaline Phosphatase 91, Total Protein 6.3L, Albumin 3.5 Microbiology 06/05/21 MRSA Screen - Final, Complete MRSA not isolated Procedures S/P successful ICD implant on 06-05-21 A/P: Assessment: Ischemic cardiomyopathy - diagnosed on card cath of 01-03-21 that showed LVEDP21 mmHg and LVEF 20-25%, and darian-apical and infero-apical akinesis - Life Vest in place - dc'd after ICD implant - Echocardiogram of 03-28-21 showed LVEF 30-35%. Akinesis of the apical septal, apical lateral and apical myocardium. LA is milldy to mod dilated. PASP 45- 50mmHg - MUGA scan of 05-08-21 showed LVEF 30% - Single chamber ICD implantation on 06-05-21 CAD - Recent and ac ID, diagnosed on 01-03-21 - Cath on 01-03-21: Chronically occluded and severely disease distal LAD and terminal diag (inoperable), 95% stenosis of OM1 of a dominant LCX stented with Resolute Mann 2.0 x 12 stent, RCA small and nondominant P. A-flutter - first dx on 01-14-2021 at [facility] ED - converted to SR on Amiodarone gtt - OAC with Eliquis Plan: S/P successful ICD implant on 06-05-21 OK to discharge home today Continue current medication regimen Stressed importance of medication compliance Out pt f/u on Friday for device site dressing change F/U as out in 2 weeks SEAN JIMÉNEZ Jun 06, 2021 08:02
[2021-06-06] MEDS ORDERED: CEFU500T63 PO (08:09)
--- NOTE | 2021-06-06 08:36 | Discharge Inst-Cardiology ---
Discharge Inst-Cardiac Discharge Medications New Medications: Cefuroxime Axetil (Cefuroxime) 500 Mg Tablet 500 MG PO BID, #10 TAB Continued Medications: Acetaminophen (Tylenol Extra Strength) 500 Mg Tablet 1000 MG PO Q8H PRN for PAIN-MILD (1-4), TAB Amiodarone HCl (Amiodarone HCl) 200 Mg Tablet 200 MG PO BID, TAB Apixaban (Eliquis) 5 Mg Tablet 5 MG PO BID, TAB Atorvastatin Calcium (Atorvastatin Calcium) 80 Mg Tablet 40 MG PO HS, TAB TAKES (80MG) TABLET Carvedilol (Carvedilol) 6.25 Mg Tablet 3.125 MG PO BID, TAB TAKES (6.25MG) TABLET Clopidogrel Bisulfate (Clopidogrel) 75 Mg Tablet 75 MG PO DAILY, TAB Furosemide (Furosemide) 20 Mg Tablet 20 MG PO DAILY, TAB Pantoprazole Sodium (Pantoprazole Sodium) 40 Mg Tablet.dr 40 MG PO DAILY, TAB Spironolactone (Spironolactone) 25 Mg Tablet 12.5 MG PO DAILY, TAB TAKES (25MG) TABLET New, Converted or Re-Newed RX: Transmitted to Pharmacy Patient Instructions Patient Instructions: Please schedule f/u appt on Friday with Dr. Padilla clinic nurse for device site dressing change Please schedule f/u appt to be seen by Dr. Padilla in 2 weeks SEAN JIMÉNEZ Jun 06, 2021 08:36
[2021-06-06 09:00] VITALS: BP 105/72
[2021-06-06] MEDS ORDERED: PANTOPRAZOLE 40 MG (PROTONIX) TAB PO SCH (09:00)
[2021-06-06] MEDS ORDERED: SPIRONOLACTONE 25 MG (ALDACTONE) TAB PO SCH (09:00)
[2021-06-06] MEDS ORDERED: FUROSEMIDE 20 MG (LASIX) TAB PO SCH (09:00)
[2021-06-06] MEDS ORDERED: CLOPIDOGREL 75 MG (PLAVIX) TABLET PO SCH (09:00)
[2021-06-06] MEDS: AMIODARONE 200 MG (CORDARONE) TAB PO SCH (09:08)
--- NOTE | 2021-06-06 11:52 | Progress Note - Cardiology ---
Cardiology SOAP Progress Note Subjective: No cp or palp or syncope or shortness of breath No n/v/d No focal weakness No discomfort at site of device implant Objective: I&O/Vital Signs 06/06/21 06/06/21 06/06/21 06/06/21 00:00 01:00 04:00 06:32 Temp 36.6 36.0 Pulse 55 50 53 53 Resp 12 17 B/P (MAP) 92/54 (67) 91/60 (70) Pulse Ox 95 95 O2 Delivery Room Air Room Air 06/06/21 06/06/21 09:00 09:00 Temp 36.0 Pulse 57 Resp 18 B/P (MAP) 105/72 (83) Pulse Ox 95 94 O2 Delivery Room Air Room Air 06/06/21 00:00 Intake Total 860 ml Output Total 1000 ml Balance -140 ml Side: left Device Insertion Site: without hematoma, no signs of inflammation Swelling: without swelling Drainage: No Bruising: mild bruising Constitutional: AAO x 3 Respiratory: No accessory muscle use, No respiratory distress; chest expansion is symmetric, chest is bilaterally symmetric, lungs clear to auscultation Cardiovascular: regular rate-rhythm; No JVD; S1 and S2 Gastrointestional: No tender; soft, audible bowel sounds Extremities: no lower extremity edema bilateral Neurologic/Psychiatric: grossly intact (moves all extremities) Skin: No rash on exposed areas, No ulcerations on exposed areas Results/Procedures: Labs Laboratory Tests 06/06/21 03:10: White Blood Count 7.6, Red Blood Count 4.13L, Hemoglobin 12.2L, Hematocrit 39L, Mean Corpuscular Volume 94, Mean Corpuscular Hemoglobin 30, Mean Corpuscular Hem oglobin Concent 31L, Red Cell Distribution Width 14.1, Platelet Count 195, Mean Platelet Volume 10.4, Sodium Level 135, Potassium Level 4.2, Chloride Level 105, Carbon Dioxide Level 23, Anion Gap 7, Blood Urea Nitrogen 14, Creatinine 0.94, Estimat Glomerular Filtration Rate 82, BUN/Creatinine Ratio 15, Glucose Level 99, Calcium Level 8.5, Corrected Calcium 8.9, Total Bilirubin 0.4, Aspartate Amino Transf (AST/SGOT) 17, Alanine Aminotransferase (ALT/SGPT) 15, Alkaline Phosphatase 91, Total Protein 6.3L, Albumin 3.5 Microbiology 06/05/21 MRSA Screen - Final, Complete MRSA not isolated Laboratory Tests 06/05/21 09:08 06/06/21 03:10 A/P: Assessment: Ischemic cardiomyopathy - diagnosed on card cath of 01-03-21 that showed LVEDP21 mmHg and LVEF 20-25%, and darian-apical and infero-apical akinesis - Life Vest in place - dc'd after ICD implant - Echocardiogram of 03-28-21 showed LVEF 30-35%. Akinesis of the apical septal, apical lateral and apical myocardium. LA is milldy to mod dilated. PASP 45- 50mmHg - MUGA scan of 05-08-21 showed LVEF 30% - Single chamber ICD implantation on 06-05-21, functioning normally on interrogation of 06/06/21 CAD - Recent and ac DC, diagnosed on 01-03-21 - Cath on 01-03-21: Chronically occluded and severely disease distal LAD and term inal diag (inoperable), 95% stenosis of OM1 of a dominant LCX stented with Resolute Mann 2.0 x 12 stent, RCA small and nondominant P. A-flutter - first dx on 01-14-2021 at [facility] ED - converted to SR on Amiodarone gtt - OAC with Eliquis Plan: S/P successful ICD implant on 06-05-21 Postop care reviewed with him OK to discharge home today Continue current medication regimen Stressed importance of medication compliance Out pt f/u on Friday for device site dressing change F/U as out in 2 weeks TRINITY HENSLEY MD FACP [facility] Jun 06, 2021 11:52
--- NOTE | 2021-06-06 11:53 | Cardiology Discharge Summary ---
Diagnosis/Chief Complaint Date of Admission 06/05/21 Date of Discharge 06/06/21 Final/Discharge Diagnosis Ischemic cardiomyopathy - diagnosed on card cath of 01-03-21 that showed LVEDP21 mmHg and LVEF 20-25%, and darian-apical and infero-apical akinesis - Life Vest in place - dc'd after ICD implant - Echocardiogram of 03-28-21 showed LVEF 30-35%. Akinesis of the apical septal, apical lateral and apical myocardium. LA is milldy to mod dilated. PASP 45- 50mmHg - MUGA scan of 05-08-21 showed LVEF 30% - Single chamber ICD implantation on 06-05-21, functioning normally on interrogation of 06/06/21 CAD - Recent and ac AL, diagnosed on 01-03-21 - Cath on 01-03-21: Chronically occluded and severely disease distal LAD and terminal diag (inoperable), 95% stenosis of OM1 of a dominant LCX stented with Resolute Mann 2.0 x 12 stent, RCA small and nondominant P. A-flutter - first dx on 01-14-2021 at [facility] ED - converted to SR on Amiodarone gtt - OAC with Eliquis Chief Complaint/HPI Chief Complaint/HPI Please see our progress note of the same date (06/06/21) for hospital course and condition at discharge Discharge Summary Discussion & Recommendations Home Medications Reviewed patient Home Medication Reconciliation performed by pharmacy medication reconciliations gas plant technician and/or nursing. Patients Allergies have been reviewed. Discharge Home Medications: Reviewed and agree with Discharge Medication list on patient's Discharge Instruction sheet TRINITY HENSLEY MD FACP [facility] Jun 06, 2021 11:53
[2021-06-06 12:00] VITALS: BP 118/80
[2021-06-06 14:43] VITALS: BP 118/80
== END 2021-06-06 17:28 | disposition home or self-care (01) ==
LOC: CATH 10:00 → CSD 13:04 → CATH 06-06 17:28
PROVIDERS: ATTEND Internal Medicine Cardiovascular Disease
DX: I25.5 Ischemic cardiomyopathy (principal); I25.2 Old myocardial infarction; I25.10 Atherosclerotic heart disease of native coronary artery without angina pectoris; I48.92 Unspecified atrial flutter; Z79.02 Long term (current) use of antithrombotics/antiplatelets; Z79.01 Long term (current) use of anticoagulants; Z98.890 Other specified postprocedural states
CPT/HCPCS: 33249; 36415; 71046; 80053; 80061; 85027; 85610; 85730; 87081